=== PATIENT | male | born 1960 | race Caucasian/White ===

== ENCOUNTER 2019-04-17 16:00 | Inpatient (IN) ==
[2019-04-17] MEDS ORDERED: Isovue-370 500 ML BOTTLE IVP ONE (16:50)
[2019-04-17] MEDS ORDERED: 0.9 % Sodium Chloride 1,000 ML IVC ONE (18:22)
[2019-04-17] MEDS ORDERED: Clindamycin 600 MG/50 ML 600 MG/50 ML IV.SOLN IVPB STA (18:22)
[2019-04-17] MEDS ORDERED: *HR* HYDROmorphone (PF) 1 MG/ML SYRINGE IVP ONE (19:57)
[2019-04-17] MEDS ORDERED: 0.9 % Sodium Chloride 1,000 ML IV SCH (20:00)
[2019-04-17] MEDS: 0.9 % Sodium Chloride 1,000 ML IVC SCH (20:31)
[2019-04-17] MEDS ORDERED: Naloxone 0.4 MG/ML INJ IVP PRN ×2 (23:25→23:29)
[2019-04-17] MEDS ORDERED: *HR* Dextrose 50 % in Water (Syg) 50 ML SYRINGE IVP PRN (23:25)
[2019-04-17] MEDS ORDERED: Dextrose Gel 15 GM/37.5 ML TUBE PO PRN ×2 (23:25)
[2019-04-17] MEDS ORDERED: Ondansetron ODT 4 MG TAB.RAPDIS SL PRN (23:25)
[2019-04-17] MEDS ORDERED: D5% in Water 1,000 ML IVC PRN (23:25)
[2019-04-17 23:46] LABS: Magnesium 1.7 mg/dL (1.6-2.6); Phosphorous 3.6 mg/dL (2.7-4.5)
[2019-04-17] MEDS ORDERED: Cefepime HCl 1,000 MG in 0.9 % Sodium Chloride Mini Bag 100 ML IVPB SCH (23:46)
[2019-04-18] LABS: Thyroid Stimulating Hormone 2.286 mcIU/mL (0.340-5.600)
[2019-04-18] MEDS: 0.9 % Sodium Chloride 1,000 ML IVC SCH ×5 (00:18→17:55)
[2019-04-18] MEDS: Nicotine 21 MG PATCH.TD24 TD SCH ×2 (00:22→08:54)
[2019-04-18] MEDS: MetroNIDAZOLE 500 MG/100 ML 500 MG/100 ML BAG IVPB SCH ×4 (01:00→23:24)
[2019-04-18 04:10] LABS: Basophils % 0.3 %; Eosinophils # 0.1 K/mcL (0.0-0.6); Eosinophils % 0.4 %; Hematocrit 31.2 % (37.5-50.1); Hemoglobin 10.3 g/dL (12.9-16.9); Immature Granulocytes % 1.3 % (0-4); Lymphocytes # 1.3 K/mcL (0.6-4.6); Lymphocytes % 9.3 %; Mean Corpuscular Hemoglobin 30.5 pg (28.0-33.3); Mean Corpuscular Volume 92.3 fL (83.0-100.0); Mean Platelet Volume 8.6 fL (9.4-12.4); Monocytes # 1.1 K/mcL (0.0-1.3); Monocytes % 7.6 %; Platelet Count 430 K/mcL (140-400); Red Blood Count 3.38 M/mcL (4.19-5.50); Red Cell Distribution Width 12.8 % (11.5-14.5); Segmented Neutrophils % 81.1 %; White Blood Count 14.4 K/mcL (4.3-11.1)
[2019-04-18 04:27] LABS: Neutrophils # 11.7 K/mcL (1.6-8.9)
[2019-04-18 04:43] LABS: Troponin I 0.04 ng/mL (< 0.04)
[2019-04-18 04:48] LABS: BUN/Creatinine Ratio 28 (6-26); Blood Urea Nitrogen 13 mg/dL (8-23); Calcium 7.4 mg/dL (8.6-10.3); Carbon Dioxide 18 mEq/L (23-29); Chloride 112 mEq/L (98-107); Chol/HDL Ratio 7.3 (0-4.9); Cholesterol 80 mg/dL (< 200); Glucose 93 mg/dL (70-105); HDL Cholesterol 11 mg/dL (40-59); LDL Cholesterol,Calculated 50 mg/dL (0-99); Osmolality,Calculated 282 (280-300); Potassium 3.9 mEq/L (3.5-5.1); Sodium 136 mEq/L (136-145); Triglycerides 96 mg/dL (< 150); eGFR For African Americans > 60 (> 60); eGFR For Non-African Americans > 60 (> 60)
[2019-04-18 04:50] LABS: Platelet Estimate Normal (Normal)
[2019-04-18 05:27] LABS: Bilirubin,Urine Negative (Negative); Blood,Urine Negative (Negative); Clarity,Urine Cloudy (Clear); Color,Urine Dark Yellow (Yellow); Glucose,Urine (UA) Normal (Normal); Ketones,Urine Negative (Negative); Leukocyte Esterase,Urine Negative (Negative); Nitrite,Urine Negative (Negative); PH,Urine 5.5 pH Units (5.0-8.0); Protein,Urine Negative (Neg-Trace); Specific Gravity,Urine 1.024 (1.010-1.025); Urobilinogen,Urine Normal (Normal)
[2019-04-18 05:30] LABS: RBC,Urine 0-3 per hpf (0-3); Squamous Epithelial Cell,Urine Moderate per lpf (None-Few); WBC,Urine 0-3 per hpf (0-3)
[2019-04-18] MEDS ORDERED: *HR* Heparin 5,000 UNIT/ML VIAL SQ SCH ×2 (06:00→18:00)
[2019-04-18 06:07] LABS: Mucus,Urine Few (Few)
[2019-04-18 06:11] LABS: Bacteria,Urine Few per hpf (None-Few)
[2019-04-18 07:55] LABS: Estimated Average Glucose 140 mg/dl
[2019-04-18] MEDS ORDERED: 0.9 % Sodium Chloride 500 ML ONE (10:04)
[2019-04-18] MEDS ORDERED: *HR* Midazolam HCl 2 MG/2 ML VIAL ONE (10:08)
[2019-04-18] MEDS ORDERED: *HR* FentaNYL (PF) 100 MCG/2 ML VIAL ONE (10:08)
[2019-04-18] MEDS ORDERED: *HR* Midazolam HCl 2 MG/2 ML VIAL IVP ONE (10:23)
[2019-04-18] MEDS ORDERED: *HR* FentaNYL (PF) 100 MCG/2 ML VIAL IVP ONE (10:23)
[2019-04-18 11:08] LABS: Creatine Kinase 44 Units/L (30-223)
[2019-04-18] MEDS ORDERED: Dextrose Gel 15 GM/37.5 ML TUBE PO PRN ×2 (11:25)
[2019-04-18] MEDS ORDERED: *HR* Dextrose 50 % in Water (Syg) 50 ML SYRINGE IVP PRN (11:25)
[2019-04-18] MEDS ORDERED: Ondansetron ODT 4 MG TAB.RAPDIS SL PRN (11:25)
[2019-04-18] MEDS ORDERED: Naloxone 0.4 MG/ML INJ IVP PRN ×2 (11:25)
[2019-04-18] MEDS ORDERED: D5% in Water 1,000 ML IVC PRN (11:25)
[2019-04-18] MEDS ORDERED: Cefepime HCl 1,000 MG in 0.9 % Sodium Chloride Mini Bag 100 ML IVPB SCH (11:46)
[2019-04-18] MEDS ORDERED: *HR* Heparin 5,000 UNIT/ML VIAL IVP ONE (15:26)
[2019-04-18] MEDS ORDERED: *HR* Heparin 5,000 UNIT/ML VIAL IVP PRN (15:26)
[2019-04-18 16:19] LABS: Hematocrit 32.4 % (37.5-50.1); Hemoglobin 10.7 g/dL (12.9-16.9); Mean Corpuscular Hemoglobin 30.3 pg (28.0-33.3); Mean Corpuscular Volume 91.8 fL (83.0-100.0); Mean Platelet Volume 8.7 fL (9.4-12.4); Platelet Count 471 K/mcL (140-400); Red Blood Count 3.53 M/mcL (4.19-5.50); Red Cell Distribution Width 12.8 % (11.5-14.5); White Blood Count 10.7 K/mcL (4.3-11.1)
[2019-04-18 16:28] LABS: INR 1.7; Prothrombin Time 18.8 Seconds (9.4-12.1)
[2019-04-18 16:30] LABS: Activated Partial Thrombo Time 24.5 Seconds (26.0-36.0)
[2019-04-18] MEDS: Heparin 25,000 UNIT/250 ML D5W 25,000 UNIT/250 ML IV.SOLN IVC SCH (16:51)
[2019-04-18] MEDS: Cefepime HCl 2,000 MG in Water for inj. (sterile) 20 ML IVP SCH (17:57)
[2019-04-19] MEDS: 0.9 % Sodium Chloride 1,000 ML IVC SCH ×2 (02:06→09:27)
[2019-04-19] MEDS: Cefepime HCl 2,000 MG in Water for inj. (sterile) 20 ML IVP SCH ×3 (02:06→18:00)
[2019-04-19] MEDS: *HR* Heparin 5,000 UNIT/ML VIAL IVP PRN ×3 (02:20→15:02)
[2019-04-19 04:57] LABS: Basophils % 0.2 %; Eosinophils # 0.3 K/mcL (0.0-0.6); Eosinophils % 3.4 %; Hematocrit 31.1 % (37.5-50.1); Hemoglobin 10.3 g/dL (12.9-16.9); Immature Granulocytes % 1.2 % (0-4); Lymphocytes # 1.8 K/mcL (0.6-4.6); Lymphocytes % 18.5 %; Mean Corpuscular HGB Conc 33.1 g/dL (31.6-35.5); Mean Corpuscular Hemoglobin 30.5 pg (28.0-33.3); Mean Platelet Volume 8.5 fL (9.4-12.4); Monocytes # 0.8 K/mcL (0.0-1.3); Monocytes % 8.1 %; Neutrophils # 6.5 K/mcL (1.6-8.9); Platelet Count 444 K/mcL (140-400); Red Blood Count 3.38 M/mcL (4.19-5.50); Segmented Neutrophils % 68.6 %; White Blood Count 9.5 K/mcL (4.3-11.1)
[2019-04-19 05:19] LABS: BUN/Creatinine Ratio 21 (6-26); Blood Urea Nitrogen 11 mg/dL (8-23); Calcium 7.7 mg/dL (8.6-10.3); Carbon Dioxide 22 mEq/L (23-29); Chloride 112 mEq/L (98-107); Glucose 107 mg/dL (70-105); Osmolality,Calculated 288 (280-300); Sodium 139 mEq/L (136-145); eGFR For African Americans > 60 (> 60); eGFR For Non-African Americans > 60 (> 60)
[2019-04-19 05:54] LABS: Platelet Estimate Normal (Normal)
[2019-04-19] MEDS: MetroNIDAZOLE 500 MG/100 ML 500 MG/100 ML BAG IVPB SCH (08:15)
[2019-04-19] MEDS ORDERED: Nicotine 21 MG PATCH.TD24 TD SCH (09:00)
[2019-04-19] MEDS: Heparin 25,000 UNIT/250 ML D5W 25,000 UNIT/250 ML IV.SOLN IVC SCH ×2 (09:28→21:26)
[2019-04-19 10:15] LABS: Magnesium 1.8 mg/dL (1.6-2.6); Phosphorous 3.5 mg/dL (2.7-4.5)
[2019-04-19] MEDS ORDERED: D10% in Water 500 ML IVC PRN (10:30)
[2019-04-19] MEDS ORDERED: *HR* Dextrose 50 % in Water (Syg) 50 ML SYRINGE IVP PRN ×2 (10:58→12:02)
[2019-04-19] MEDS ORDERED: D5% in Water 1,000 ML IVC PRN ×2 (10:58→12:02)
[2019-04-19] MEDS ORDERED: Dextrose Gel 15 GM/37.5 ML TUBE PO PRN ×4 (10:58→12:02)
[2019-04-19] MEDS ORDERED: Micafungin 100 MG in 0.9 % Sodium Chloride Mini Bag 100 ML IVPB SCH (11:05)
[2019-04-19] MEDS ORDERED: Insulin LISPRO 300 UNITS/3 ML VIAL SQ SCH ×2 (12:00→18:00)
[2019-04-19] MEDS ORDERED: Naloxone 0.4 MG/ML INJ IVP PRN (12:02)
[2019-04-19] MEDS ORDERED: 0.9 % Sodium Chloride 1,000 ML IVC SCH (12:02)
[2019-04-19] MEDS ORDERED: Ondansetron ODT 4 MG TAB.RAPDIS SL PRN (12:02)
[2019-04-19] MEDS ORDERED: *HR* Heparin 5,000 UNIT/ML VIAL IVP PRN (12:02)
[2019-04-19] MEDS ORDERED: MetroNIDAZOLE 500 MG/100 ML 500 MG/100 ML BAG IVPB SCH ×2 (16:00→19:00)
[2019-04-19] MEDS ORDERED: Clinimix E 5%-15% SOLUTION 2,000 ML with MVI, adult with vitamin K 10 ML IVC SCH ×2 (17:00)
[2019-04-19] MEDS: Fluconazole 200 MG/100 ML 200 MG/100 ML BAG IVPB SCH (18:12)
[2019-04-19] MEDS: Insulin LISPRO 300 UNITS/3 ML VIAL SQ SCH ×2 (18:24→21:13)
[2019-04-19] MEDS: Thiamine (B-1) 100 MG in 0.9 % Sodium Chloride 50 ML IVPB SCH (19:01)
[2019-04-20] MEDS: MetroNIDAZOLE 500 MG/100 ML 500 MG/100 ML BAG IVPB SCH ×3 (00:06→18:26)
[2019-04-20] MEDS: Insulin LISPRO 300 UNITS/3 ML VIAL SQ SCH ×5 (00:21→18:00)
[2019-04-20] MEDS: Cefepime HCl 2,000 MG in Water for inj. (sterile) 20 ML IVP SCH ×3 (02:48→18:06)
[2019-04-20 04:08] LABS: Basophils % 0.2 %; Eosinophils # 0.4 K/mcL (0.0-0.6); Eosinophils % 4.4 %; Hematocrit 29.5 % (37.5-50.1); Immature Granulocytes % 0.9 % (0-4); Lymphocytes # 1.7 K/mcL (0.6-4.6); Lymphocytes % 19.7 %; Mean Corpuscular HGB Conc 33.9 g/dL (31.6-35.5); Mean Corpuscular Volume 91.3 fL (83.0-100.0); Mean Platelet Volume 8.7 fL (9.4-12.4); Monocytes # 0.7 K/mcL (0.0-1.3); Monocytes % 7.9 %; Neutrophils # 5.8 K/mcL (1.6-8.9); Platelet Count 469 K/mcL (140-400); Red Blood Count 3.23 M/mcL (4.19-5.50); Red Cell Distribution Width 13.2 % (11.5-14.5); Segmented Neutrophils % 66.9 %; White Blood Count 8.6 K/mcL (4.3-11.1)
[2019-04-20 04:12] LABS: VBG Ionized Calcium 1.16 mmol/L (1.15-1.35)
[2019-04-20 04:28] LABS: Magnesium 1.8 mg/dL (1.6-2.6); Phosphorous 3.3 mg/dL (2.7-4.5)
[2019-04-20 04:31] LABS: Platelet Estimate Increased (Normal)
[2019-04-20 04:33] LABS: BUN/Creatinine Ratio 21 (6-26); Blood Urea Nitrogen 8 mg/dL (8-23); Calcium 7.3 mg/dL (8.6-10.3); Carbon Dioxide 23 mEq/L (23-29); Chloride 108 mEq/L (98-107); Glucose 128 mg/dL (70-105); Osmolality,Calculated 284 (280-300); Sodium 137 mEq/L (136-145); eGFR For African Americans > 60 (> 60); eGFR For Non-African Americans > 60 (> 60)
[2019-04-20] MEDS: Thiamine (B-1) 100 MG in 0.9 % Sodium Chloride 50 ML IVPB SCH (05:00)
[2019-04-20] MEDS: *HR* Heparin 5,000 UNIT/ML VIAL IVP PRN (05:27)
[2019-04-20] MEDS ORDERED: Isovue-370 500 ML BOTTLE IVP ONE (07:13)
[2019-04-20] MEDS ORDERED: Potassium Chloride 40 MEQ, Lidocaine 1% 2 ML in 0.9 % Sodium Chloride 500 ML IVPB ONE ×2 (08:15→12:00)
[2019-04-20] MEDS ORDERED: Nicotine 21 MG PATCH.TD24 TD SCH (09:00)
[2019-04-20] MEDS: Heparin 25,000 UNIT/250 ML D5W 25,000 UNIT/250 ML IV.SOLN IVC SCH (10:00)
[2019-04-20] MEDS ORDERED: Isovue-370 500 ML BOTTLE PO ONE ×2 (10:33→22:52)
[2019-04-20] MEDS ORDERED: D10% in Water 500 ML IVC PRN ×2 (11:05→22:52)
[2019-04-20] MEDS: Fluconazole 200 MG/100 ML 200 MG/100 ML BAG IVPB SCH (11:12)
[2019-04-20] MEDS ORDERED: Clinimix E 5%-15% SOLUTION 2,000 ML with MVI, adult with vitamin K 10 ML IVC SCH ×2 (17:00→22:52)
[2019-04-20] MEDS ORDERED: *HR* HYDROmorphone (PF) 1 MG/ML SYRINGE IVP PRN (19:22)
[2019-04-20] MEDS ORDERED: *HR* OxyCODONE Immed Rel 5 MG TABLET PO PRN (19:22)
[2019-04-20] MEDS ORDERED: Ondansetron 4 MG/2 ML VIAL IVP ONE ×2 (19:22→22:52)
[2019-04-20] MEDS ORDERED: *HR* Propofol 200 MG/20 ML VIAL IVP ONE (19:23)
[2019-04-20] MEDS ORDERED: *HR* FentaNYL (PF) 100 MCG/2 ML VIAL ONE (19:23)
[2019-04-20] MEDS ORDERED: CefOXitin 1,000 MG VIAL ONE ×2 (19:24→21:05)
[2019-04-20] MEDS ORDERED: *HR* Succinylcholine 200 MG/10 ML VIAL IVP ONE (19:52)
[2019-04-20] MEDS ORDERED: *HR* PHENYLEPHRINE 1,000 MCG/10 ML SYRINGE IVP ONE ×2 (19:58→20:45)
[2019-04-20] MEDS ORDERED: *HR* Rocuronium Bromide 50 MG/5 ML VIAL ONE ×2 (20:46→20:47)
[2019-04-20] MEDS ORDERED: Ondansetron 4 MG/2 ML VIAL ONE (20:46)
[2019-04-20] MEDS ORDERED: Neostigmine Methylsulfate 3 MG/3 ML SYRINGE ONE (21:19)
[2019-04-20] MEDS ORDERED: Ketorolac 30 MG/ML VIAL ONE (21:37)
[2019-04-20] MEDS ORDERED: Dexamethasone 4 MG/ML VIAL ONE (22:18)
[2019-04-20] MEDS ORDERED: D5% in Water 1,000 ML IVC PRN (22:52)
[2019-04-20] MEDS ORDERED: *HR* Dextrose 50 % in Water (Syg) 50 ML SYRINGE IVP PRN (22:52)
[2019-04-20] MEDS ORDERED: Naloxone 0.4 MG/ML INJ IVP PRN (22:52)
[2019-04-20] MEDS ORDERED: Dextrose Gel 15 GM/37.5 ML TUBE PO PRN ×2 (22:52)
[2019-04-20] MEDS: 0.9 % Sodium Chloride 1,000 ML IVC SCH (23:58)
[2019-04-20] MEDS: Ondansetron ODT 4 MG TAB.RAPDIS SL PRN (23:58)
[2019-04-21] MEDS: Insulin LISPRO 300 UNITS/3 ML VIAL SQ SCH ×7 (00:19→23:52)
[2019-04-21] MEDS: Cefepime HCl 2,000 MG in Water for inj. (sterile) 20 ML IVP SCH ×3 (02:22→18:57)
[2019-04-21] MEDS: MetroNIDAZOLE 500 MG/100 ML 500 MG/100 ML BAG IVPB SCH ×3 (02:22→18:57)
[2019-04-21] MEDS: Morphine Sulfate 2 MG/ML SYRINGE IVP PRN ×4 (02:26→20:26)
[2019-04-21 04:54] LABS: Basophils % 0.3 %; Eosinophils # 0.2 K/mcL (0.0-0.6); Eosinophils % 1.5 %; Hematocrit 30.2 % (37.5-50.1); Immature Granulocytes % 1.2 % (0-4); Lymphocytes # 1.2 K/mcL (0.6-4.6); Lymphocytes % 11.1 %; Mean Corpuscular HGB Conc 33.1 g/dL (31.6-35.5); Mean Corpuscular Hemoglobin 30.5 pg (28.0-33.3); Mean Corpuscular Volume 92.1 fL (83.0-100.0); Mean Platelet Volume 8.8 fL (9.4-12.4); Monocytes # 0.6 K/mcL (0.0-1.3); Neutrophils # 8.6 K/mcL (1.6-8.9); Platelet Count 437 K/mcL (140-400); Red Blood Count 3.28 M/mcL (4.19-5.50); Red Cell Distribution Width 13.2 % (11.5-14.5); Segmented Neutrophils % 79.9 %; White Blood Count 10.7 K/mcL (4.3-11.1)
[2019-04-21 05:11] LABS: Magnesium 1.9 mg/dL (1.6-2.6); Phosphorous 2.9 mg/dL (2.7-4.5)
[2019-04-21 05:30] LABS: BUN/Creatinine Ratio 21 (6-26); Blood Urea Nitrogen 8 mg/dL (8-23); Calcium 7.1 mg/dL (8.6-10.3); Carbon Dioxide 23 mEq/L (23-29); Chloride 110 mEq/L (98-107); Glucose 131 mg/dL (70-105); Osmolality,Calculated 286 (280-300); Potassium 4.1 mEq/L (3.5-5.1); Sodium 138 mEq/L (136-145); eGFR For African Americans > 60 (> 60); eGFR For Non-African Americans > 60 (> 60)
[2019-04-21 05:34] LABS: Toxic Granulation Present (Not Present)
[2019-04-21] MEDS ORDERED: Thiamine (B-1) 100 MG in 0.9 % Sodium Chloride 50 ML IVPB SCH (09:00)
[2019-04-21] MEDS: Thiamine (B-1) 100 MG in 0.9 % Sodium Chloride 50 ML IVPB SCH (10:13)
[2019-04-21] MEDS: Fluconazole 200 MG/100 ML 200 MG/100 ML BAG IVPB SCH (10:14)
[2019-04-21] MEDS: Nicotine 21 MG PATCH.TD24 TD SCH (10:39)
[2019-04-21] MEDS: 0.9 % Sodium Chloride 1,000 ML IVC SCH ×2 (10:40→18:55)
[2019-04-21] MEDS ORDERED: Heparin 1,000 UNITS/500 mL 500 ML ONE (13:34)
[2019-04-21] MEDS ORDERED: Clinimix E 5%-15% SOLUTION 2,000 ML with MVI, adult with vitamin K 10 ML IVC SCH (17:00)
[2019-04-22] MEDS: Cefepime HCl 2,000 MG in Water for inj. (sterile) 20 ML IVP SCH ×3 (02:30→18:00)
[2019-04-22] MEDS: MetroNIDAZOLE 500 MG/100 ML 500 MG/100 ML BAG IVPB SCH ×3 (02:31→18:00)
[2019-04-22] MEDS: Insulin LISPRO 300 UNITS/3 ML VIAL SQ SCH ×5 (03:51→20:31)
[2019-04-22 04:12] LABS: Basophils % 0.1 %; Eosinophils # 0.3 K/mcL (0.0-0.6); Eosinophils % 2.6 %; Hematocrit 26.3 % (37.5-50.1); Hemoglobin 8.5 g/dL (12.9-16.9); Immature Granulocytes % 1.7 % (0-4); Lymphocytes # 1.8 K/mcL (0.6-4.6); Lymphocytes % 14.5 %; Mean Corpuscular HGB Conc 32.3 g/dL (31.6-35.5); Mean Corpuscular Hemoglobin 30.6 pg (28.0-33.3); Mean Corpuscular Volume 94.6 fL (83.0-100.0); Mean Platelet Volume 8.7 fL (9.4-12.4); Monocytes % 8.3 %; Neutrophils # 8.9 K/mcL (1.6-8.9); Platelet Count 379 K/mcL (140-400); Red Blood Count 2.78 M/mcL (4.19-5.50); Red Cell Distribution Width 13.2 % (11.5-14.5); Segmented Neutrophils % 72.8 %; White Blood Count 12.2 K/mcL (4.3-11.1)
[2019-04-22 04:32] LABS: BUN/Creatinine Ratio 28 (6-26); Blood Urea Nitrogen 10 mg/dL (8-23); Carbon Dioxide 22 mEq/L (23-29); Chloride 112 mEq/L (98-107); Glucose 123 mg/dL (70-105); Magnesium 1.9 mg/dL (1.6-2.6); Osmolality,Calculated 284 (280-300); Phosphorous 2.5 mg/dL (2.7-4.5); Potassium 3.6 mEq/L (3.5-5.1); Sodium 137 mEq/L (136-145); eGFR For African Americans > 60 (> 60); eGFR For Non-African Americans > 60 (> 60)
[2019-04-22] MEDS: 0.9 % Sodium Chloride 1,000 ML IVC SCH ×3 (05:34→12:34)
[2019-04-22] MEDS: Nicotine 21 MG PATCH.TD24 TD SCH (10:01)
[2019-04-22] MEDS: Thiamine (B-1) 100 MG in 0.9 % Sodium Chloride 50 ML IVPB SCH (10:02)
[2019-04-22] MEDS: Fluconazole 200 MG/100 ML 200 MG/100 ML BAG IVPB SCH (10:02)
[2019-04-22 10:04] LABS: Basophils % 0.2 %; Eosinophils # 0.3 K/mcL (0.0-0.6); Eosinophils % 2.4 %; Hematocrit 26.5 % (37.5-50.1); Hemoglobin 8.8 g/dL (12.9-16.9); Immature Granulocytes % 1.3 % (0-4); Lymphocytes # 1.7 K/mcL (0.6-4.6); Lymphocytes % 14.5 %; Mean Corpuscular HGB Conc 33.2 g/dL (31.6-35.5); Mean Corpuscular Hemoglobin 30.4 pg (28.0-33.3); Mean Corpuscular Volume 91.7 fL (83.0-100.0); Mean Platelet Volume 8.7 fL (9.4-12.4); Monocytes % 8.7 %; Neutrophils # 8.7 K/mcL (1.6-8.9); Platelet Count 408 K/mcL (140-400); Red Blood Count 2.89 M/mcL (4.19-5.50); Red Cell Distribution Width 13.4 % (11.5-14.5); Segmented Neutrophils % 72.9 %; White Blood Count 11.9 K/mcL (4.3-11.1)
[2019-04-22 10:21] LABS: Platelet Estimate Normal (Normal)
[2019-04-22] MEDS: Morphine Sulfate 2 MG/ML SYRINGE IVP PRN ×2 (13:21→20:37)
[2019-04-22] MEDS ORDERED: Clinimix E 5%-15% SOLUTION 2,000 ML with MVI, adult with vitamin K 10 ML IVC SCH (17:00)
[2019-04-22 17:53] LABS: Hematocrit 26.2 % (37.5-50.1); Hemoglobin 8.9 g/dL (12.9-16.9); Mean Corpuscular Hemoglobin 30.9 pg (28.0-33.3); Mean Platelet Volume 8.6 fL (9.4-12.4); Platelet Count 426 K/mcL (140-400); Red Blood Count 2.88 M/mcL (4.19-5.50); Red Cell Distribution Width 13.3 % (11.5-14.5); White Blood Count 12.6 K/mcL (4.3-11.1)
[2019-04-22] MEDS: Pantoprazole 40 MG VIAL IVP SCH (18:01)
[2019-04-23] MEDS: Insulin LISPRO 300 UNITS/3 ML VIAL SQ SCH ×6 (01:02→19:34)
[2019-04-23] MEDS: Cefepime HCl 2,000 MG in Water for inj. (sterile) 20 ML IVP SCH ×3 (01:18→18:06)
[2019-04-23] MEDS: MetroNIDAZOLE 500 MG/100 ML 500 MG/100 ML BAG IVPB SCH ×3 (01:19→18:07)
[2019-04-23 03:52] LABS: BUN/Creatinine Ratio 27 (6-26); Blood Urea Nitrogen 10 mg/dL (8-23); Calcium 7.2 mg/dL (8.6-10.3); Carbon Dioxide 24 mEq/L (23-29); Chloride 110 mEq/L (98-107); Glucose 107 mg/dL (70-105); Magnesium 1.7 mg/dL (1.6-2.6); Osmolality,Calculated 282 (280-300); Phosphorous 3.3 mg/dL (2.7-4.5); Potassium 3.7 mEq/L (3.5-5.1); Sodium 136 mEq/L (136-145); eGFR For African Americans > 60 (> 60); eGFR For Non-African Americans > 60 (> 60)
[2019-04-23] MEDS: Pantoprazole 40 MG VIAL IVP SCH ×2 (05:39→18:06)
[2019-04-23] MEDS: 0.9 % Sodium Chloride 1,000 ML IVC SCH (06:47)
[2019-04-23] MEDS: Fluconazole 200 MG/100 ML 200 MG/100 ML BAG IVPB SCH (08:14)
[2019-04-23] MEDS: Morphine Sulfate 2 MG/ML SYRINGE IVP PRN ×2 (08:14→16:26)
[2019-04-23] MEDS: Nicotine 21 MG PATCH.TD24 TD SCH (08:15)
[2019-04-23] MEDS: Thiamine (B-1) 100 MG in 0.9 % Sodium Chloride 50 ML IVPB SCH (10:18)
[2019-04-23] MEDS ORDERED: Furosemide 40 MG/4 ML VIAL IVP ONE (13:22)
[2019-04-23 14:23] LABS: Hematocrit 26.9 % (37.5-50.1); Hemoglobin 8.8 g/dL (12.9-16.9); Mean Corpuscular HGB Conc 32.7 g/dL (31.6-35.5); Mean Corpuscular Hemoglobin 30.1 pg (28.0-33.3); Mean Corpuscular Volume 92.1 fL (83.0-100.0); Mean Platelet Volume 8.8 fL (9.4-12.4); Platelet Count 434 K/mcL (140-400); Red Blood Count 2.92 M/mcL (4.19-5.50); Red Cell Distribution Width 13.4 % (11.5-14.5); White Blood Count 13.2 K/mcL (4.3-11.1)
[2019-04-23 14:44] LABS: Eosinophils # 0.5 K/mcL (0.0-0.6); Lymphocytes # 1.9 K/mcL (0.6-4.6); Monocytes # 0.5 K/mcL (0.0-1.3); Neutrophils # 10.3 K/mcL (1.6-8.9)
[2019-04-23] MEDS ORDERED: Clinimix E 5%-15% SOLUTION 2,000 ML with MVI, adult with vitamin K 10 ML IVC SCH (17:00)
[2019-04-24] MEDS: Insulin LISPRO 300 UNITS/3 ML VIAL SQ SCH ×6 (00:31→20:27)
[2019-04-24] MEDS: Morphine Sulfate 2 MG/ML SYRINGE IVP PRN ×3 (00:34→20:16)
[2019-04-24] MEDS: Cefepime HCl 2,000 MG in Water for inj. (sterile) 20 ML IVP SCH ×3 (01:44→17:08)
[2019-04-24] MEDS: MetroNIDAZOLE 500 MG/100 ML 500 MG/100 ML BAG IVPB SCH ×3 (01:45→17:10)
[2019-04-24 02:51] LABS: Hematocrit 25.4 % (37.5-50.1); Mean Corpuscular HGB Conc 31.5 g/dL (31.6-35.5); Mean Corpuscular Volume 95.1 fL (83.0-100.0); Mean Platelet Volume 8.9 fL (9.4-12.4); Platelet Count 400 K/mcL (140-400); Red Blood Count 2.67 M/mcL (4.19-5.50); Red Cell Distribution Width 13.5 % (11.5-14.5); White Blood Count 12.2 K/mcL (4.3-11.1)
[2019-04-24 03:12] LABS: Alanine Aminotransferase 8 Units/L (7-52); Albumin 1.7 g/dL (3.5-5.7); Albumin/Globulin Ratio 0.6 (1.1-2.2); Alkaline Phosphatase 43 Units/L (34-104); Aspartate Amino Transferase 14 Units/L (13-39); BUN/Creatinine Ratio 27 (6-26); Bilirubin,Total 0.3 mg/dL (0.3-1.0); Blood Urea Nitrogen 10 mg/dL (8-23); Calcium 7.1 mg/dL (8.6-10.3); Carbon Dioxide 27 mEq/L (23-29); Chloride 108 mEq/L (98-107); Glucose 96 mg/dL (70-105); Magnesium 1.6 mg/dL (1.6-2.6); Osmolality,Calculated 283 (280-300); Phosphorous 3.5 mg/dL (2.7-4.5); Potassium 3.5 mEq/L (3.5-5.1); Sodium 137 mEq/L (136-145); Total Protein 4.7 g/dL (6.4-8.9); eGFR For African Americans > 60 (> 60); eGFR For Non-African Americans > 60 (> 60)
[2019-04-24] MEDS: Pantoprazole 40 MG VIAL IVP SCH ×2 (05:18→17:09)
[2019-04-24] MEDS: Thiamine (B-1) 100 MG in 0.9 % Sodium Chloride 50 ML IVPB SCH (08:38)
[2019-04-24] MEDS: Nicotine 21 MG PATCH.TD24 TD SCH (08:39)
[2019-04-24] MEDS: Fluconazole 200 MG/100 ML 200 MG/100 ML BAG IVPB SCH (08:40)
[2019-04-24] MEDS ORDERED: Potassium Chloride 40 MEQ, Lidocaine 1% 2 ML in 0.9 % Sodium Chloride 500 ML IVPB ONE (09:03)
[2019-04-24] MEDS: Albuterol 2.5 MG/3 ML NEBULIZER IH SCH ×4 (11:11→23:29)
[2019-04-24] MEDS: Acetylcysteine 10% 2 ML INHSOL IH SCH ×4 (11:12→23:29)
[2019-04-24 13:50] LABS: Hematocrit 25.9 % (37.5-50.1); Hemoglobin 8.6 g/dL (12.9-16.9)
[2019-04-24] MEDS ORDERED: Clinimix E 5%-15% SOLUTION 2,000 ML with MVI, adult with vitamin K 10 ML IVC SCH (17:00)
[2019-04-25] MEDS: Insulin LISPRO 300 UNITS/3 ML VIAL SQ SCH ×6 (00:05→20:23)
[2019-04-25] MEDS: Cefepime HCl 2,000 MG in Water for inj. (sterile) 20 ML IVP SCH ×3 (02:00→18:21)
[2019-04-25] MEDS: MetroNIDAZOLE 500 MG/100 ML 500 MG/100 ML BAG IVPB SCH ×3 (02:01→18:21)
[2019-04-25] MEDS: Morphine Sulfate 2 MG/ML SYRINGE IVP PRN ×2 (02:23→08:42)
[2019-04-25] MEDS: Albuterol 2.5 MG/3 ML NEBULIZER IH SCH ×6 (03:53→23:43)
[2019-04-25] MEDS: Acetylcysteine 10% 2 ML INHSOL IH SCH ×3 (03:53→11:54)
[2019-04-25 04:04] LABS: Basophils % 0.3 %; Eosinophils # 0.5 K/mcL (0.0-0.6); Eosinophils % 3.7 %; Hematocrit 26.3 % (37.5-50.1); Hemoglobin 8.7 g/dL (12.9-16.9); Lymphocytes # 2.1 K/mcL (0.6-4.6); Lymphocytes % 16.3 %; Mean Corpuscular HGB Conc 33.1 g/dL (31.6-35.5); Mean Corpuscular Hemoglobin 30.3 pg (28.0-33.3); Mean Corpuscular Volume 91.6 fL (83.0-100.0); Mean Platelet Volume 8.8 fL (9.4-12.4); Monocytes # 0.9 K/mcL (0.0-1.3); Monocytes % 7.2 %; Neutrophils # 9.3 K/mcL (1.6-8.9); Platelet Count 447 K/mcL (140-400); Red Blood Count 2.87 M/mcL (4.19-5.50); Red Cell Distribution Width 13.9 % (11.5-14.5); Segmented Neutrophils % 70.5 %; White Blood Count 13.1 K/mcL (4.3-11.1)
[2019-04-25 04:22] LABS: BUN/Creatinine Ratio 29 (6-26); Blood Urea Nitrogen 11 mg/dL (8-23); Calcium 7.5 mg/dL (8.6-10.3); Carbon Dioxide 28 mEq/L (23-29); Chloride 103 mEq/L (98-107); Glucose 118 mg/dL (70-105); Magnesium 1.8 mg/dL (1.6-2.6); Osmolality,Calculated 280 (280-300); Phosphorous 3.4 mg/dL (2.7-4.5); Potassium 4.2 mEq/L (3.5-5.1); Sodium 135 mEq/L (136-145); eGFR For African Americans > 60 (> 60); eGFR For Non-African Americans > 60 (> 60)
[2019-04-25] MEDS: Pantoprazole 40 MG VIAL IVP SCH ×2 (05:33→18:21)
[2019-04-25] MEDS: Fluconazole 400 MG/200 ML 400 MG/200 ML BAG IVPB SCH (08:28)
[2019-04-25] MEDS: Nicotine 21 MG PATCH.TD24 TD SCH (08:33)
[2019-04-25] MEDS ORDERED: Aminoglycoside Consult 1 EACH MC ONE (09:32)
[2019-04-25] MEDS: Thiamine (B-1) 100 MG in 0.9 % Sodium Chloride 50 ML IVPB SCH (10:32)
[2019-04-25] MEDS: Ketorolac 15 MG/ML VIAL IVP SCH ×3 (10:33→18:21)
[2019-04-25] MEDS: Metoclopramide 10 MG/2 ML VIAL IVP SCH ×2 (10:33→18:21)
[2019-04-25] MEDS: Acetaminophen IV 1,000 MG/100 ML INFUS..BTL IVPB SCH ×2 (12:53→18:18)
[2019-04-25] MEDS ORDERED: Clinimix E 5%-15% SOLUTION 2,000 ML with MVI, adult with vitamin K 10 ML IVC SCH (17:00)
[2019-04-26] MEDS: Insulin LISPRO 300 UNITS/3 ML VIAL SQ SCH ×6 (00:47→21:28)
[2019-04-26] MEDS: Acetaminophen IV 1,000 MG/100 ML INFUS..BTL IVPB SCH ×5 (00:52→23:07)
[2019-04-26] MEDS: Metoclopramide 10 MG/2 ML VIAL IVP SCH ×5 (00:53→23:06)
[2019-04-26] MEDS: Ketorolac 15 MG/ML VIAL IVP SCH ×5 (00:53→23:06)
[2019-04-26] MEDS: Cefepime HCl 2,000 MG in Water for inj. (sterile) 20 ML IVP SCH ×3 (03:30→17:00)
[2019-04-26] MEDS: MetroNIDAZOLE 500 MG/100 ML 500 MG/100 ML BAG IVPB SCH ×3 (03:31→17:00)
[2019-04-26] MEDS: Albuterol 2.5 MG/3 ML NEBULIZER IH SCH ×5 (03:45→20:01)
[2019-04-26 03:49] LABS: Basophils # 0.1 K/mcL (0.0-0.2); Basophils % 0.4 %; Eosinophils # 0.7 K/mcL (0.0-0.6); Eosinophils % 6.2 %; Hematocrit 26.8 % (37.5-50.1); Hemoglobin 8.7 g/dL (12.9-16.9); Lymphocytes # 2.1 K/mcL (0.6-4.6); Lymphocytes % 17.4 %; Mean Corpuscular HGB Conc 32.5 g/dL (31.6-35.5); Mean Corpuscular Hemoglobin 30.2 pg (28.0-33.3); Mean Corpuscular Volume 93.1 fL (83.0-100.0); Mean Platelet Volume 8.8 fL (9.4-12.4); Monocytes # 0.9 K/mcL (0.0-1.3); Monocytes % 7.3 %; Platelet Count 456 K/mcL (140-400); Red Blood Count 2.88 M/mcL (4.19-5.50); Red Cell Distribution Width 14.5 % (11.5-14.5); Segmented Neutrophils % 66.7 %; White Blood Count 11.9 K/mcL (4.3-11.1)
[2019-04-26 04:08] LABS: BUN/Creatinine Ratio 29 (6-26); Blood Urea Nitrogen 11 mg/dL (8-23); Calcium 7.6 mg/dL (8.6-10.3); Carbon Dioxide 27 mEq/L (23-29); Chloride 106 mEq/L (98-107); Glucose 105 mg/dL (70-105); Osmolality,Calculated 282 (280-300); Phosphorous 4.4 mg/dL (2.7-4.5); Potassium 4.3 mEq/L (3.5-5.1); Sodium 136 mEq/L (136-145); eGFR For African Americans > 60 (> 60); eGFR For Non-African Americans > 60 (> 60)
[2019-04-26] MEDS: Pantoprazole 40 MG VIAL IVP SCH ×2 (05:34→17:00)
[2019-04-26] MEDS: Nicotine 21 MG PATCH.TD24 TD SCH (07:59)
[2019-04-26] MEDS: Fluconazole 400 MG/200 ML 400 MG/200 ML BAG IVPB SCH (08:22)
[2019-04-26] MEDS ORDERED: Furosemide 40 MG TABLET PO ONE (12:30)
[2019-04-26] MEDS: Ondansetron ODT 4 MG TAB.RAPDIS SL PRN (14:14)
[2019-04-26] MEDS ORDERED: Clinimix E 5%-15% SOLUTION 2,000 ML with MVI, adult with vitamin K 10 ML IVC SCH (17:00)
[2019-04-27] MEDS: Albuterol 2.5 MG/3 ML NEBULIZER IH SCH ×7 (00:03→23:55)
[2019-04-27] MEDS: Insulin LISPRO 300 UNITS/3 ML VIAL SQ SCH ×6 (00:28→20:31)
[2019-04-27] MEDS: Cefepime HCl 2,000 MG in Water for inj. (sterile) 20 ML IVP SCH ×3 (03:32→17:31)
[2019-04-27] MEDS: MetroNIDAZOLE 500 MG/100 ML 500 MG/100 ML BAG IVPB SCH ×3 (03:32→17:31)
[2019-04-27 04:05] LABS: Basophils # 0.1 K/mcL (0.0-0.2); Basophils % 0.7 %; Eosinophils # 0.8 K/mcL (0.0-0.6); Eosinophils % 6.1 %; Hematocrit 27.7 % (37.5-50.1); Hemoglobin 8.9 g/dL (12.9-16.9); Immature Granulocytes % 2.4 % (0-4); Lymphocytes # 2.5 K/mcL (0.6-4.6); Lymphocytes % 18.2 %; Mean Corpuscular HGB Conc 32.1 g/dL (31.6-35.5); Mean Corpuscular Hemoglobin 30.2 pg (28.0-33.3); Mean Corpuscular Volume 93.9 fL (83.0-100.0); Mean Platelet Volume 8.8 fL (9.4-12.4); Monocytes # 0.9 K/mcL (0.0-1.3); Monocytes % 6.5 %; Platelet Count 518 K/mcL (140-400); Red Blood Count 2.95 M/mcL (4.19-5.50); Red Cell Distribution Width 15.2 % (11.5-14.5); Segmented Neutrophils % 66.1 %; White Blood Count 13.6 K/mcL (4.3-11.1)
[2019-04-27 04:23] LABS: BUN/Creatinine Ratio 30 (6-26); Blood Urea Nitrogen 13 mg/dL (8-23); Carbon Dioxide 27 mEq/L (23-29); Chloride 104 mEq/L (98-107); Glucose 113 mg/dL (70-105); Magnesium 1.9 mg/dL (1.6-2.6); Osmolality,Calculated 283 (280-300); Phosphorous 4.1 mg/dL (2.7-4.5); Potassium 4.5 mEq/L (3.5-5.1); Sodium 136 mEq/L (136-145); eGFR For African Americans > 60 (> 60); eGFR For Non-African Americans > 60 (> 60)
[2019-04-27] MEDS: Acetaminophen IV 1,000 MG/100 ML INFUS..BTL IVPB SCH ×3 (06:09→18:10)
[2019-04-27] MEDS: Ketorolac 15 MG/ML VIAL IVP SCH ×3 (06:10→17:32)
[2019-04-27] MEDS: Pantoprazole 40 MG VIAL IVP SCH ×2 (06:10→17:32)
[2019-04-27] MEDS: Metoclopramide 10 MG/2 ML VIAL IVP SCH (06:10)
[2019-04-27] MEDS ORDERED: Methylnaltrexone 12 MG/0.6 ML SYRINGE SQ ONE (08:01)
[2019-04-27] MEDS: *HR* Heparin 5,000 UNIT/ML VIAL SQ SCH ×2 (09:08→14:46)
[2019-04-27] MEDS: Fluconazole 400 MG/200 ML 400 MG/200 ML BAG IVPB SCH (09:08)
[2019-04-27] MEDS: Nicotine 21 MG PATCH.TD24 TD SCH ×2 (09:08→09:16)
[2019-04-27] MEDS: Ondansetron ODT 4 MG TAB.RAPDIS SL SCH ×3 (12:14→17:33)
[2019-04-27] MEDS ORDERED: Clinimix E 5%-15% SOLUTION 2,000 ML with MVI, adult with vitamin K 10 ML IVC SCH (17:00)
[2019-04-28] MEDS: *HR* Heparin 5,000 UNIT/ML VIAL SQ SCH ×4 (00:44→22:16)
[2019-04-28] MEDS: Acetaminophen IV 1,000 MG/100 ML INFUS..BTL IVPB SCH ×3 (00:44→11:51)
[2019-04-28] MEDS: Ketorolac 15 MG/ML VIAL IVP SCH ×3 (00:44→11:50)
[2019-04-28] MEDS: Ondansetron ODT 4 MG TAB.RAPDIS SL SCH ×3 (00:46→11:50)
[2019-04-28] MEDS: Insulin LISPRO 300 UNITS/3 ML VIAL SQ SCH ×6 (00:46→22:54)
[2019-04-28] MEDS: Cefepime HCl 2,000 MG in Water for inj. (sterile) 20 ML IVP SCH ×3 (04:05→17:09)
[2019-04-28] MEDS: MetroNIDAZOLE 500 MG/100 ML 500 MG/100 ML BAG IVPB SCH ×2 (04:05→10:48)
[2019-04-28] MEDS: Albuterol 2.5 MG/3 ML NEBULIZER IH SCH ×6 (04:21→23:52)
[2019-04-28 04:26] LABS: Basophils # 0.1 K/mcL (0.0-0.2); Basophils % 0.8 %; Eosinophils % 0.3 %; Hemoglobin 8.4 g/dL (12.9-16.9); Immature Granulocytes % 1.9 % (0-4); Mean Corpuscular HGB Conc 32.3 g/dL (31.6-35.5); Mean Corpuscular Hemoglobin 30.7 pg (28.0-33.3); Mean Corpuscular Volume 94.9 fL (83.0-100.0); Mean Platelet Volume 8.6 fL (9.4-12.4); Monocytes # 0.8 K/mcL (0.0-1.3); Monocytes % 7.2 %; Neutrophils # 7.9 K/mcL (1.6-8.9); Platelet Count 513 K/mcL (140-400); Red Blood Count 2.74 M/mcL (4.19-5.50); Red Cell Distribution Width 15.6 % (11.5-14.5); Segmented Neutrophils % 71.8 %
[2019-04-28 04:47] LABS: BUN/Creatinine Ratio 29 (6-26); Blood Urea Nitrogen 14 mg/dL (8-23); Calcium 8.1 mg/dL (8.6-10.3); Carbon Dioxide 28 mEq/L (23-29); Chloride 106 mEq/L (98-107); Glucose 121 mg/dL (70-105); Magnesium 1.9 mg/dL (1.6-2.6); Osmolality,Calculated 284 (280-300); Phosphorous 3.8 mg/dL (2.7-4.5); Potassium 4.4 mEq/L (3.5-5.1); Sodium 136 mEq/L (136-145); eGFR For African Americans > 60 (> 60); eGFR For Non-African Americans > 60 (> 60)
[2019-04-28] MEDS: Pantoprazole 40 MG VIAL IVP SCH (05:19)
[2019-04-28] MEDS: Fluconazole 400 MG/200 ML 400 MG/200 ML BAG IVPB SCH (09:26)
[2019-04-28] MEDS: Nicotine 21 MG PATCH.TD24 TD SCH (09:29)
[2019-04-28] MEDS: metroNIDAZOLE 500 MG TABLET PO SCH (22:15)
[2019-04-29] MEDS: Cefepime HCl 2,000 MG in Water for inj. (sterile) 20 ML IVP SCH ×3 (03:25→18:07)
[2019-04-29 03:47] LABS: Hematocrit 25.8 % (37.5-50.1); Hemoglobin 8.3 g/dL (12.9-16.9); Mean Corpuscular HGB Conc 32.2 g/dL (31.6-35.5); Mean Corpuscular Hemoglobin 30.7 pg (28.0-33.3); Mean Corpuscular Volume 95.6 fL (83.0-100.0); Mean Platelet Volume 8.8 fL (9.4-12.4); Platelet Count 556 K/mcL (140-400); Red Cell Distribution Width 16.2 % (11.5-14.5); White Blood Count 11.8 K/mcL (4.3-11.1)
[2019-04-29 04:05] LABS: BUN/Creatinine Ratio 25 (6-26); Blood Urea Nitrogen 13 mg/dL (8-23); Calcium 8.1 mg/dL (8.6-10.3); Carbon Dioxide 28 mEq/L (23-29); Chloride 105 mEq/L (98-107); Glucose 86 mg/dL (70-105); Magnesium 1.8 mg/dL (1.6-2.6); Osmolality,Calculated 279 (280-300); Phosphorous 3.5 mg/dL (2.7-4.5); Potassium 4.4 mEq/L (3.5-5.1); Sodium 135 mEq/L (136-145); eGFR For African Americans > 60 (> 60); eGFR For Non-African Americans > 60 (> 60)
[2019-04-29] MEDS: Albuterol 2.5 MG/3 ML NEBULIZER IH SCH ×5 (04:18→19:45)
[2019-04-29] MEDS: *HR* Heparin 5,000 UNIT/ML VIAL SQ SCH ×3 (05:19→20:08)
[2019-04-29] MEDS: Insulin LISPRO 300 UNITS/3 ML VIAL SQ SCH ×5 (05:19→16:01)
[2019-04-29 05:54] LABS: VBG Ionized Calcium 1.22 mmol/L (1.15-1.35)
[2019-04-29] MEDS: Fluconazole 400 MG/200 ML 400 MG/200 ML BAG IVPB SCH (11:22)
[2019-04-29] MEDS: metroNIDAZOLE 500 MG TABLET PO SCH ×3 (11:23→20:08)
[2019-04-29] MEDS: Nicotine 21 MG PATCH.TD24 TD SCH (11:23)
[2019-04-29] MEDS: Acetaminophen 325 MG TABLET PO PRN (13:51)
[2019-04-30] MEDS: Albuterol 2.5 MG/3 ML NEBULIZER IH SCH ×6 (00:01→19:49)
[2019-04-30 04:51] LABS: Basophils # 0.1 K/mcL (0.0-0.2); Basophils % 0.7 %; Eosinophils # 0.8 K/mcL (0.0-0.6); Eosinophils % 7.2 %; Hematocrit 26.6 % (37.5-50.1); Hemoglobin 8.3 g/dL (12.9-16.9); Immature Granulocytes % 1.4 % (0-4); Lymphocytes # 2.2 K/mcL (0.6-4.6); Lymphocytes % 19.7 %; Mean Corpuscular HGB Conc 31.2 g/dL (31.6-35.5); Mean Corpuscular Hemoglobin 30.5 pg (28.0-33.3); Mean Corpuscular Volume 97.8 fL (83.0-100.0); Mean Platelet Volume 8.7 fL (9.4-12.4); Monocytes # 0.9 K/mcL (0.0-1.3); Monocytes % 8.4 %; Neutrophils # 6.9 K/mcL (1.6-8.9); Platelet Count 551 K/mcL (140-400); Red Blood Count 2.72 M/mcL (4.19-5.50); Red Cell Distribution Width 16.3 % (11.5-14.5); Segmented Neutrophils % 62.6 %
[2019-04-30 05:11] LABS: BUN/Creatinine Ratio 16 (6-26); Blood Urea Nitrogen 9 mg/dL (8-23); Calcium 8.4 mg/dL (8.6-10.3); Carbon Dioxide 26 mEq/L (23-29); Chloride 103 mEq/L (98-107); Glucose 86 mg/dL (70-105); Osmolality,Calculated 280 (280-300); Potassium 4.2 mEq/L (3.5-5.1); Sodium 136 mEq/L (136-145); eGFR For African Americans > 60 (> 60); eGFR For Non-African Americans > 60 (> 60)
[2019-04-30] MEDS: Cefepime HCl 2,000 MG in Water for inj. (sterile) 20 ML IVP SCH ×3 (06:39→17:51)
[2019-04-30] MEDS: *HR* Heparin 5,000 UNIT/ML VIAL SQ SCH ×3 (06:39→21:26)
[2019-04-30] MEDS: Nicotine 21 MG PATCH.TD24 TD SCH (09:28)
[2019-04-30] MEDS: metroNIDAZOLE 500 MG TABLET PO SCH ×3 (09:31→21:26)
[2019-04-30] MEDS: Fluconazole 400 MG/200 ML 400 MG/200 ML BAG IVPB SCH (09:31)
[2019-04-30] MEDS: Ondansetron ODT 4 MG TAB.RAPDIS SL PRN (17:53)
[2019-05-01] MEDS: Albuterol 2.5 MG/3 ML NEBULIZER IH SCH ×6 (00:04→20:24)
[2019-05-01] MEDS: Cefepime HCl 2,000 MG in Water for inj. (sterile) 20 ML IVP SCH ×3 (02:17→18:29)
[2019-05-01 02:56] LABS: Basophils # 0.1 K/mcL (0.0-0.2); Basophils % 1.2 %; Eosinophils # 0.7 K/mcL (0.0-0.6); Hematocrit 28.7 % (37.5-50.1); Hemoglobin 9.2 g/dL (12.9-16.9); Immature Granulocytes % 1.8 % (0-4); Lymphocytes # 2.8 K/mcL (0.6-4.6); Lymphocytes % 25.2 %; Mean Corpuscular HGB Conc 32.1 g/dL (31.6-35.5); Mean Corpuscular Hemoglobin 30.7 pg (28.0-33.3); Mean Corpuscular Volume 95.7 fL (83.0-100.0); Mean Platelet Volume 8.6 fL (9.4-12.4); Monocytes # 1.1 K/mcL (0.0-1.3); Monocytes % 9.4 %; Neutrophils # 6.4 K/mcL (1.6-8.9); Platelet Count 587 K/mcL (140-400); Red Cell Distribution Width 16.7 % (11.5-14.5); Segmented Neutrophils % 56.4 %; White Blood Count 11.3 K/mcL (4.3-11.1)
[2019-05-01] MEDS: *HR* Heparin 5,000 UNIT/ML VIAL SQ SCH ×3 (05:28→21:29)
[2019-05-01] MEDS: Insulin LISPRO 300 UNITS/3 ML VIAL SQ SCH (07:42)
[2019-05-01] MEDS: metroNIDAZOLE 500 MG TABLET PO SCH ×3 (08:51→21:28)
[2019-05-01] MEDS: Nicotine 21 MG PATCH.TD24 TD SCH (08:52)
[2019-05-01] MEDS: Fluconazole 400 MG/200 ML 400 MG/200 ML BAG IVPB SCH (08:52)
[2019-05-01] MEDS: Acetaminophen 325 MG TABLET PO PRN (21:28)
[2019-05-02] MEDS: Cefepime HCl 2,000 MG in Water for inj. (sterile) 20 ML IVP SCH ×3 (03:45→17:34)
[2019-05-02] MEDS: Albuterol 2.5 MG/3 ML NEBULIZER IH SCH ×7 (04:14→23:44)
[2019-05-02 04:18] LABS: Basophils # 0.1 K/mcL (0.0-0.2); Basophils % 1.1 %; Eosinophils % 10.5 %; Hematocrit 28.3 % (37.5-50.1); Hemoglobin 9.2 g/dL (12.9-16.9); Immature Granulocytes % 2.1 % (0-4); Lymphocytes # 2.3 K/mcL (0.6-4.6); Mean Corpuscular HGB Conc 32.5 g/dL (31.6-35.5); Mean Corpuscular Volume 95.3 fL (83.0-100.0); Mean Platelet Volume 8.7 fL (9.4-12.4); Monocytes # 0.9 K/mcL (0.0-1.3); Monocytes % 9.5 %; Neutrophils # 4.8 K/mcL (1.6-8.9); Platelet Count 557 K/mcL (140-400); Red Blood Count 2.97 M/mcL (4.19-5.50); Red Cell Distribution Width 16.8 % (11.5-14.5); Segmented Neutrophils % 51.8 %; White Blood Count 9.3 K/mcL (4.3-11.1)
[2019-05-02 04:41] LABS: BUN/Creatinine Ratio 20 (6-26); Blood Urea Nitrogen 11 mg/dL (8-23); Calcium 8.5 mg/dL (8.6-10.3); Carbon Dioxide 25 mEq/L (23-29); Chloride 105 mEq/L (98-107); Glucose 97 mg/dL (70-105); Osmolality,Calculated 283 (280-300); Potassium 4.2 mEq/L (3.5-5.1); Sodium 137 mEq/L (136-145); eGFR For African Americans > 60 (> 60); eGFR For Non-African Americans > 60 (> 60)
[2019-05-02] MEDS: *HR* Heparin 5,000 UNIT/ML VIAL SQ SCH ×3 (08:33→22:39)
[2019-05-02] MEDS: Fluconazole 400 MG/200 ML 400 MG/200 ML BAG IVPB SCH (08:34)
[2019-05-02] MEDS: metroNIDAZOLE 500 MG TABLET PO SCH ×3 (08:34→19:36)
[2019-05-02] MEDS: Nicotine 21 MG PATCH.TD24 TD SCH (08:34)
[2019-05-02] MEDS ORDERED: Isovue-370 500 ML BOTTLE IVP ONE (13:03)
[2019-05-03] MEDS: Cefepime HCl 2,000 MG in Water for inj. (sterile) 20 ML IVP SCH (03:06)
[2019-05-03 03:55] LABS: Basophils # 0.1 K/mcL (0.0-0.2); Basophils % 0.9 %; Eosinophils # 0.9 K/mcL (0.0-0.6); Eosinophils % 8.8 %; Hematocrit 28.8 % (37.5-50.1); Hemoglobin 8.9 g/dL (12.9-16.9); Immature Granulocytes % 2.2 % (0-4); Lymphocytes # 2.7 K/mcL (0.6-4.6); Lymphocytes % 26.1 %; Mean Corpuscular HGB Conc 30.9 g/dL (31.6-35.5); Mean Corpuscular Hemoglobin 30.4 pg (28.0-33.3); Mean Corpuscular Volume 98.3 fL (83.0-100.0); Mean Platelet Volume 8.8 fL (9.4-12.4); Monocytes # 1.1 K/mcL (0.0-1.3); Monocytes % 10.3 %; Neutrophils # 5.3 K/mcL (1.6-8.9); Platelet Count 552 K/mcL (140-400); Red Blood Count 2.93 M/mcL (4.19-5.50); Red Cell Distribution Width 17.1 % (11.5-14.5); Segmented Neutrophils % 51.7 %; White Blood Count 10.2 K/mcL (4.3-11.1)
[2019-05-03] MEDS: Albuterol 2.5 MG/3 ML NEBULIZER IH SCH ×4 (04:01→15:43)
[2019-05-03 04:18] LABS: BUN/Creatinine Ratio 16 (6-26); Blood Urea Nitrogen 9 mg/dL (8-23); Calcium 8.6 mg/dL (8.6-10.3); Carbon Dioxide 24 mEq/L (23-29); Chloride 105 mEq/L (98-107); Glucose 87 mg/dL (70-105); Osmolality,Calculated 282 (280-300); Potassium 4.2 mEq/L (3.5-5.1); Sodium 137 mEq/L (136-145); eGFR For African Americans > 60 (> 60); eGFR For Non-African Americans > 60 (> 60)
[2019-05-03] MEDS: metroNIDAZOLE 500 MG TABLET PO SCH ×2 (10:23→15:18)
[2019-05-03] MEDS: *HR* Heparin 5,000 UNIT/ML VIAL SQ SCH ×2 (10:23→15:18)
[2019-05-03] MEDS: Nicotine 21 MG PATCH.TD24 TD SCH (10:24)
[2019-05-03] MEDS: Fluconazole 400 MG/200 ML 400 MG/200 ML BAG IVPB SCH (10:25)
[2019-05-03 15:30] VITALS: BP 113/80
[2019-05-03] MEDS: Ondansetron ODT 4 MG TAB.RAPDIS SL PRN (15:47)
[2019-05-04] MEDS ORDERED: Amoxicillin/Clavulanate 500 MG TABLET PO SCH (08:00)
== END 2019-05-03 19:25 | DRG 853 ==
LOC: EMEROOARM 16:00 → ICNU 20:15 → SUATTDRO 20:15 → ICNU 21:15 → 3NENU 04-19 11:17 → 3ANU 04-20 22:43
PROVIDERS: ADMIT Internal Medicine; ATTEND Internal Medicine
PROC: IRDRAIN (2019-04-18 11:00)